=== PATIENT | male | born 1940 | race Native Hawaiian/Other Pacific Islander ===

== ENCOUNTER 2016-07-11 14:28 | Outpatient (CLI) | payer OTHER ==
[~2016-07-11 14:28] MED LIST: LORA1TAB17 PO; NEURONTIN 100M100 MG OR; NEXIUM40 M1 PO
[2016-07-11 15:08] LABS: POTASSIUM 4.3 mmol/L (3.6-5.2)
[2016-07-11 15:29] LABS: PLATELET COUNT 200 K/uL (142-355)
== END 2016-07-11 19:22 | disposition home or self-care (01) ==
LOC: LABW 14:28
PROVIDERS: Physician Assistant
DX: Z00.00 Encounter for general adult medical examination without abnormal findings (principal); E53.8 Deficiency of other specified B group vitamins; M54.2 Cervicalgia; K21.9 Gastro-esophageal reflux disease without esophagitis; Z12.5 Encounter for screening for malignant neoplasm of prostate; Z79.899 Other long term (current) drug therapy; Z51.81 Encounter for therapeutic drug level monitoring
CPT/HCPCS: 36415; 80053; 80061; 82607; 84439; 84443; 85027; G0103

== ENCOUNTER 2016-09-05 12:27 | Outpatient (CLI) | payer OTHER | END 2016-09-05 13:30 | disposition home or self-care (01) | LOC: LABW 12:27 | DX: B35.1 Tinea unguium (principal) | CPT/HCPCS: 36415; 84450; 84460 ==

== ENCOUNTER 2019-12-24 15:59 | Emergency (ER) | payer OTHER ==
[~2019-12-24] VITALS: Ht 182.9 cm; Wt 78.0 kg
[2019-12-24 16:08] VITALS: TEMP 98
[2019-12-24 16:52] LABS: PLATELET COUNT 230 K/uL (142-355)
[2019-12-24 16:57] LABS: POTASSIUM 4.3 mmol/L (3.6-5.2)
[2019-12-24 17:09] LABS: PARTIAL THROMBOPLASTIN TIME 24.3 SECONDS (24.5-33.6)
[2019-12-24 17:42] VITALS: BP 120/71
== END 2019-12-24 17:42 | disposition home or self-care (01) ==
LOC: ED 15:59
PROVIDERS: Hospitalist
DX: K62.5 Hemorrhage of anus and rectum (principal); K64.4 Residual hemorrhoidal skin tags
CPT/HCPCS: 36415; 80053; 85027; 85610; 85730; 96360; 99284